=== PATIENT | male | born 1995 | race Hispanic/Latino ===

== ENCOUNTER 2018-08-08 21:22 | Emergency (ER) | payer OTHER | END 2018-08-08 23:00 | disposition home or self-care (01) | LOC: EDH 21:22 | DX: M54.5 Low back pain (principal); K29.70 Gastritis, unspecified, without bleeding; Z90.49 Acquired absence of other specified parts of digestive tract; Z72.0 Tobacco use | CPT/HCPCS: 99281 ==

== ENCOUNTER 2019-05-15 14:16 | Emergency (ER) | payer OTHER | END 2019-05-15 15:41 | disposition home or self-care (01) | LOC: EDH 14:16 | DX: K64.8 Other hemorrhoids (principal); Z72.0 Tobacco use ==

== ENCOUNTER 2021-02-22 20:59 | Emergency (ER) | payer OTHER ==
[~2021-02-22] VITALS: Ht 177.8 cm; Wt 110.2 kg
[2021-02-22 22:12] VITALS: BP 132/73
[2021-02-22] MEDS ORDERED: KETOROLAC 60 MG VIAL (30MG/ML) IM ONE (22:15)
[2021-02-22 22:46] LABS: BASOPHILS % (AUTO) 0.6 % (0.0-5.0); EOSINOPHILS % (AUTO) 4.9 % (0.0-8.0); LYMPHOCYTES % (AUTO) 44.1 % (21.0-51.0); MEAN CORPUSCULAR HEMOGLOBIN 30.1 pg (27.0-33.0); MEAN CORPUSCULAR HGB CONC 34.2 g/dL (32.0-36.0); MEAN CORPUSCULAR VOLUME 87.9 fL (79-99); MONOCYTES % (AUTO) 7.4 % (3.0-13.0); NEUTROPHILS % (AUTO) 42.9 % (40.0-77.0); PLATELET COUNT (AUTO) 222 K/uL (130-400); RED BLOOD CELL COUNT(AUTO) 4.89 MIL/uL (4.50-6.20); WHITE BLOOD COUNT (AUTO) 8.4 K/uL (4.8-10.8)
[2021-02-22 22:59] LABS: CREATININE 1.2 mg/dL (0.5-1.5); POTASSIUM 4.1 mmol/L (3.5-5.1)
[2021-02-22 23:09] LABS: ALBUMIN 4.2 g/dL (3.5-5.0); BILIRUBIN,TOTAL 0.5 mg/dL (0.2-1.0); TOTAL PROTEIN, SERUM 8.2 g/dL (6.0-8.3)
== END 2021-02-22 23:22 | disposition home or self-care (01) ==
LOC: EDH 20:59
DX: R07.89 Other chest pain (principal); Z79.1 Long term (current) use of non-steroidal anti-inflammatories (NSAID)
CPT/HCPCS: 36415; 71045; 80053; 84484; 85025; 93005